=== PATIENT | female | born 1965 | race Two or more races ===

== ENCOUNTER → 2017-01-23 | Outpatient (CLI) | payer BC, MEDICARE ==
[2016-03-30 08:13] VITALS: BP 112/65
[~2017-01-23] MED LIST: ACET-704 PO; AMLO5TAB2 PO; BUDE10.2 IH; Butalb/Acetaminophen/Caffeine PO; CETI10TA22 PO; CLON-276 PO; FLUT1BLS INH; GUAI-40 PO; INSU100V31 SQ; IPRA3AMP NEB; Ipratropium/Albuterol Sulfate NEB; METF10002 PO; MONT10TA9 PO; MORP30TA83 PO; Nystatin SWSW; PRED-220 PO; PRED5TAB PO; PRED5TAB19 PO; TIOT18CA IH
--- NOTE | 2017-01-23 10:29 | RAD ---
Exam performed: Left lower extremity venous Doppler. Clinical Indication: Left knee swelling Date of Service:01/23/17 Comparison : None available Discussion: Multiple longitudinal and transverse high resolution real-time images of the venous system of left lower extremity were obtained with color and Doppler sampling and spectral analysis. The common femoral, superficial femoral, popliteal and proximal calf veins are all patent and demonstrate normal flow and compressibility. Normal respiratory phasicity and augmentation is present. There is flexion anterior and superior to the patella suggesting knee joint effusion. Impression: No convincing evidence of DVT noted. Left knee joint effusion.
== END | disposition home or self-care (01) ==
LOC: US 09:24
PROVIDERS: ATTEND Family Medicine
DX: M25.462 Effusion, left knee (principal); R60.0 Localized edema
CPT/HCPCS: 93971

== ENCOUNTER → 2017-04-16 | Outpatient (CLI) | payer BC, MEDICARE ==
[2016-03-30 08:13] VITALS: BP 112/65
--- NOTE | 2017-04-16 08:42 | RAD ---
Bilateral lower extremity venous Doppler 04/16/2017 Clinical indication: Right lower extremity swelling for 4 days. Comparison: None. Findings: Serial gradient compression of the bilateral lower extremity femoral popliteal system was performed with color Doppler imaging, Valsalva and evaluation for spontaneous flow and normal respiratory variation. The bilateral common femoral, visualized greater saphenous, femoral, insertion of the deep femoral and popliteal veins are widely patent. Bilateral calf survey is unremarkable. There is a moderate simple appearing knee joint effusion most prominent anteromedially. Impression: 1. No acute DVT in the bilateral lower extremities. 2. Moderate right knee joint effusion.
== END | disposition home or self-care (01) ==
LOC: US 07:48
PROVIDERS: ATTEND Nurse Practitioner Family
DX: M25.461 Effusion, right knee (principal); M79.604 Pain in right leg
CPT/HCPCS: 93971

== ENCOUNTER → 2017-11-21 | Outpatient (CLI) | payer BC, MEDICARE ==
[2016-03-30 08:13] VITALS: BP 112/65
[2017-11-21 13:51] LABS: ALBUMIN 3.8 g/dL (3.4-5.0); CALCIUM 8.9 mg/dL (8.5-10.1); CREATININE 0.6 mg/dL (0.6-1.0); GFR 105.4; POTASSIUM 3.7 mmol/L (3.5-5.1); TOTAL BILIRUBIN 0.7 mg/dL (0.2-1.0); TOTAL PROTEIN 7.7 g/dL (6.4-8.2)
[2017-11-21 17:02] LABS: THYROID STIM HORMONE (TSH) 1.086 uIU/mL (0.358-3.740)
[2017-11-21 21:07] LABS: HEMOGLOBIN A1C 12.2 % (4.8-5.6)
== END | disposition home or self-care (01) ==
LOC: LAB 12:33
PROVIDERS: ATTEND Physician Assistant
DX: I10 Essential (primary) hypertension (principal); E11.65 Type 2 diabetes mellitus with hyperglycemia; J44.9 Chronic obstructive pulmonary disease, unspecified; M54.5 Low back pain; J30.2 Other seasonal allergic rhinitis; K21.9 Gastro-esophageal reflux disease without esophagitis; G25.81 Restless legs syndrome; R07.89 Other chest pain
CPT/HCPCS: 36415; 80053; 80061; 82550; 83036; 83880; 84443; 84484; 85379

== ENCOUNTER → 2018-08-18 | Outpatient (CLI) | payer BC ==
[2016-03-30 08:13] VITALS: BP 112/65
[~2018-08-18] MED LIST changes: -AMLO5TAB2 PO; +AMLO5TAB7 PO; +IOHEXOL 240 MG/ML 50ML VIAL. ONE; -IPRA3AMP NEB; +IPRA3AMP29 NEB; -METF10002 PO; +METF10007 PO
[2018-08-18 14:59] LABS: BASO # 0.1 x10^3/uL (0.0-0.2); BASO % 1 % (0-3); EOS # 0.5 x10^3/uL (0.0-0.7); EOS % 6 % (0-3); HEMATOCRIT 47.3 % (36.0-47.0); HEMOGLOBIN 15.6 g/dL (12.0-15.5); LYMPH # 1.7 x10^3/uL (1.0-4.8); LYMPH % 21 % (24-48); MEAN CORPUSCULAR HEMOGLOBIN 29 pg (25-35); MEAN CORPUSCULAR HGB CONC 33 g/dL (31-37); MEAN CORPUSCULAR VOLUME 88 fL (79-100); MONO # 0.4 x10^3/uL (0.0-1.1); MONO % 5 % (0-9); NEUT # 5.4 x10^3uL (1.8-7.7); NEUT % 68 % (31-73); PLATELET COUNT 305 x10^3/uL (140-400); RED BLOOD COUNT 5.37 x10^6/uL (3.50-5.40); RED CELL DISTRIBUTION WIDTH 13.1 % (11.5-14.5)
[2018-08-18 15:05] LABS: ALBUMIN 3.8 g/dL (3.4-5.0); CALCIUM 9.3 mg/dL (8.5-10.1); CREATININE 0.7 mg/dL (0.6-1.0); GFR 87.9; POTASSIUM 3.6 mmol/L (3.5-5.1); TOTAL BILIRUBIN 0.4 mg/dL (0.2-1.0); TOTAL PROTEIN 7.8 g/dL (6.4-8.2)
[2018-08-18] MEDS: IOHEXOL 300 MG/ML 75 ML VIAL. IV ONE (15:46)
--- NOTE | 2018-08-18 16:10 | RAD ---
CT study abdomen and pelvis with contrast Clinical indications: Epigastric and left-sided abdominal pain. TECHNIQUE: After IV infusion of 75 cc of Omnipaque 300, helical CT scanning of the abdomen and pelvis was performed. GI contrast was administered per mouth. PQRS compliance Statement One or more of the following individualized dose reduction techniques were utilized for this study: 1. Automated exposure control 2. Adjustment of the mA and/or kV according to patient size 3. Use of iterative reconstruction technique FINDINGS: The liver and spleen and pancreas are normal. The gallbladder is surgically absent. No extrahepatic biliary ductal dilatation is seen. No adrenal mass is evident. Both kidneys are normal without hydronephrosis or hydroureter. No focal aneurysmal dilatation of the abdominal aorta is seen. No enlarged abdominal or pelvic lymphadenopathy is evident. Urinary bladder wall is smooth. No uterine mass is evident. No dominant ovarian cyst or mass is evident. No obstructive bowel pattern is evident. No free air or free fluid or mesenteric edema is seen. The terminal ileum is unremarkable. The appendix is surgically absent by history. Calcified granuloma of the right lower lobe is seen. No lytic process is evident. Levoscoliosis is seen. IMPRESSION: No acute abnormality of the abdomen or pelvis. Electronically signed by: Eduardo Vega MD (08/18/2018 4:06 PM) [id number]
[2018-08-19 03:08] LABS: HEMOGLOBIN A1C 12.4 % (4.8-5.6)
[2018-08-19 14:35] LABS: THYROID STIM HORMONE (TSH) 1.677 uIU/mL (0.358-3.740)
== END | disposition home or self-care (01) ==
LOC: CT 14:11
PROVIDERS: ATTEND Nurse Practitioner Family
DX: J98.4 Other disorders of lung (principal); M41.84 Other forms of scoliosis, thoracic region
CPT/HCPCS: 36415; 74177; 80053; 80061; 82150; 82306; 82607; 82746; 83036; 83690; 84443; 85025; Q9966; Q9967

== ENCOUNTER → 2019-01-21 | Outpatient (CLI) | payer BC ==
[2016-03-30 08:13] VITALS: BP 112/65
[~2019-01-21] MED LIST changes: +AMLO5TAB10 PO; -AMLO5TAB7 PO; -IOHEXOL 240 MG/ML 50ML VIAL. ONE
--- NOTE | 2019-01-21 13:28 | RAD ---
DATE: 01/21/2019 EXAM: DIGITAL DIAGNOSTIC BILATERAL HISTORY: Mastodynia, right breast discoloration COMPARISON: 12/13/2015 This study was interpreted with the benefit of Computerized Aided Detection (CAD). Breast Density: FATTY The breast parenchyma is primarily fatty replaced. Breast parenchyma level density A. FINDINGS: No new or enlarging breast densities are seen. Benign type calcification is present. No suspicious microcalcifications are seen. IMPRESSION: There is no mammographic evidence of malignancy in either breast. BI-RADS CATEGORY: 2 BENIGN FINDING(S) RECOMMENDED FOLLOW-UP: 12M 12 MONTH FOLLOW-UP PQRS compliance statement: Patient information was entered into a reminder system with a target due date for the next mammogram. Mammography is a sensitive method for finding small breast cancers, but it does not detect them all and is not a substitute for careful clinical examination. A negative mammogram does not negate a clinically suspicious finding and should not result in delay in biopsying a clinically suspicious abnormality. "Our facility is accredited by the [employer] Mammography Program."
== END | disposition home or self-care (01) ==
LOC: MAMMO 12:51
PROVIDERS: ATTEND Nurse Practitioner Family
DX: N64.89 Other specified disorders of breast (principal)
CPT/HCPCS: 77066

== ENCOUNTER 2019-08-30 17:02 | Inpatient (IN) | payer BC, MEDICARE ==
[~2019-08-30] VITALS: Ht 157.5 cm; Wt 71.9 kg
[~2019-08-30 17:02] MED LIST changes: +MONT10TA80 PO; -MONT10TA9 PO
[2019-08-30 17:20] VITALS: BP 126/80
[2019-08-30 18:03] LABS: BASO # 0.1 x10^3/uL (0.0-0.2); BASO % 1 % (0-3); EOS # 0.1 x10^3/uL (0.0-0.7); EOS % 1 % (0-3); HEMATOCRIT 48.5 % (36.0-47.0); HEMOGLOBIN 16.1 g/dL (12.0-15.5); LYMPH # 0.4 x10^3/uL (1.0-4.8); LYMPH % 7 % (24-48); MEAN CORPUSCULAR HEMOGLOBIN 30 pg (25-35); MEAN CORPUSCULAR HGB CONC 33 g/dL (31-37); MEAN CORPUSCULAR VOLUME 90 fL (79-100); MONO # 0.5 x10^3/uL (0.0-1.1); MONO % 7 % (0-9); NEUT # 5.4 x10^3uL (1.8-7.7); NEUT % 84 % (31-73); PLATELET COUNT 220 x10^3/uL (140-400); RED BLOOD COUNT 5.39 x10^6/uL (3.50-5.40); RED CELL DISTRIBUTION WIDTH 13.8 % (11.5-14.5); WHITE BLOOD COUNT 6.4 x10^3/uL (4.0-11.0)
[2019-08-30 18:22] LABS: ALBUMIN 4.1 g/dL (3.4-5.0); ALBUMIN/GLOBULIN RATIO 1.1 (1.0-1.7); CALCIUM 9.2 mg/dL (8.5-10.1); CREATININE 0.7 mg/dL (0.6-1.0); GFR 87.5; POTASSIUM 3.8 mmol/L (3.5-5.1); TOTAL BILIRUBIN 0.5 mg/dL (0.2-1.0); TOTAL PROTEIN 7.7 g/dL (6.4-8.2)
[2019-08-30] MEDS ORDERED: FLUT1BLS IH (18:26)
[2019-08-30] MEDS ORDERED: IPRA3AMP29 NEB (18:26)
[2019-08-30] MEDS ORDERED: ALBU2.5V14 NEB (18:26)
[2019-08-30] MEDS ORDERED: CLON0.1T PO (18:26)
[2019-08-30] MEDS ORDERED: ZOLPIDEM 5 MG TABLET. PO PRN (18:30)
[2019-08-30] MEDS ORDERED: ACETAMINOPHEN 500 MG TABLET PO PRN (18:30)
[2019-08-30] MEDS ORDERED: IOHEXOL 350 MG/ML 100 ML VIAL. IV ONE (18:45)
[2019-08-30] MEDS ORDERED: CONTRAST GIVEN MC PRN (19:00)
[2019-08-30] MEDS ORDERED: DEXTROSE 50% 25 GM / 50ML DISP.SYRIN. IV PRN (19:00)
[2019-08-30] MEDS: IV NORMAL SALINE 1,000ML 1,000 ML IV SCH (19:03)
[2019-08-30] MEDS: IPRATRPIUM/ALBUTEROL 0.5/2.5MG 3 ML NEBU. NEB SCH (20:37)
[2019-08-30] MEDS: HYDROcodone/APAP 7.5/325MG 1 TAB TABLET PO PRN ×2 (21:31→23:59)
--- NOTE | 2019-08-30 21:33 | RAD ---
Exam: CT of chest, abdomen and pelvis with contrast INDICATION: Chest pain TECHNIQUE: Sequential axial images through the chest, abdomen and pelvis obtained following the administration of 72 mL of Isovue-370 IV contrast. Sagittal and coronal reformatted images were reconstructed from the axial data and reviewed. 3-D reformatted images were reconstructed from the axial data and reviewed. Comparisons: Abdomen pelvis CT 08/18/2018 FINDINGS: Visualized portions of the thyroid are unremarkable. No enlarged mediastinal lymph nodes. Heart size is normal. No pericardial effusion. Thoracic aorta has a normal course and caliber. Pulmonary artery is not enlarged. No pulmonary was identified within the main, lobar or segmental pulmonary arteries. Airways are patent. Linear bandlike opacity noted at the left lung base. No consolidation or pneumothorax. Mild bronchial wall thickening is noted. No suspicious lung nodules identified. No pleural effusion or thickening. Liver, spleen, pancreas and adrenals are unremarkable. Gallbladder surgically absent. Kidneys demonstrate symmetric enhancement. No perinephric inflammation or hydronephrosis. No renal or ureteral calculi are identified. Bladder is partially distended and appears thin-walled. Uterus is not enlarged. No abnormal adnexal mass. Large and small bowel are unremarkable. Appendix is not identified. No free intra-abdominal air or fluid. No obstruction. Abdominal aorta has a normal course and caliber. Abdominal vasculature is patent. No enlarged abdominal lymph nodes are identified. No suspicious osseous lesions or acute fractures. IMPRESSION: 1. No pulmonary embolus identified within the main, lobar or segmental pulmonary arteries. 2. Mild bronchial wall thickening and be seen in setting of bronchitis. 3. No acute process identified within the abdomen or pelvis. Exposure: One or more of the following in the visualized dose reduction techniques were utilized for this examination: 1. Automated exposure control 2. Adjustment of the MA and/or KV according to patient size 3. Use of iterative of reconstructive technique Electronically signed by: Juan Carlos Bustillo MD (08/30/2019 9:30 PM) [facility]
[2019-08-30 23:17] VITALS: BP 112/70
[2019-08-31] MEDS: IV NORMAL SALINE 1,000ML 1,000 ML IV SCH ×4 (02:07→21:28)
[2019-08-31 05:50] VITALS: BP 120/78
[2019-08-31 05:59] LABS: INFLUENZA A PATIENT POSITIVE (NEGATIVE); INFLUENZA B PATIENT NEGATIVE (NEGATIVE)
[2019-08-31 06:44] LABS: BASO % 1 % (0-3); EOS # 0.1 x10^3/uL (0.0-0.7); EOS % 1 % (0-3); HEMATOCRIT 46.4 % (36.0-47.0); HEMOGLOBIN 14.5 g/dL (12.0-15.5); LYMPH # 0.6 x10^3/uL (1.0-4.8); LYMPH % 13 % (24-48); MEAN CORPUSCULAR HEMOGLOBIN 30 pg (25-35); MEAN CORPUSCULAR HGB CONC 31 g/dL (31-37); MONO # 0.6 x10^3/uL (0.0-1.1); MONO % 12 % (0-9); NEUT # 3.4 x10^3uL (1.8-7.7); NEUT % 73 % (31-73); PLATELET COUNT 216 x10^3/uL (140-400); RED BLOOD COUNT 4.84 x10^6/uL (3.50-5.40); RED CELL DISTRIBUTION WIDTH 14.3 % (11.5-14.5); WHITE BLOOD COUNT 4.7 x10^3/uL (4.0-11.0)
[2019-08-31 06:52] LABS: ALBUMIN 3.3 g/dL (3.4-5.0); ALBUMIN/GLOBULIN RATIO 0.9 (1.0-1.7); CALCIUM 8.6 mg/dL (8.5-10.1); CREATININE 0.6 mg/dL (0.6-1.0); GFR 104.6; POTASSIUM 3.6 mmol/L (3.5-5.1); TOTAL BILIRUBIN 0.4 mg/dL (0.2-1.0); TOTAL PROTEIN 6.9 g/dL (6.4-8.2)
[2019-08-31 07:23] LABS: MEAN CORPUSCULAR VOLUME 96 fL (79-100)
[2019-08-31 07:48] LABS: HYPOCHROMIA PRESENT; PLT ESTIMATE ADEQUATE (ADEQUATE)
[2019-08-31] MEDS ORDERED: guaiFENesin/PS-EPHED 600/60MG 1 TAB TAB.ER.12H PO PRN (08:00)
[2019-08-31] MEDS ORDERED: IPRATRPIUM/ALBUTEROL 0.5/2.5MG 3 ML NEBU. NEB PRN (08:00)
[2019-08-31] MEDS: IPRATRPIUM/ALBUTEROL 0.5/2.5MG 3 ML NEBU. NEB SCH ×4 (08:29→21:10)
[2019-08-31] MEDS: ONDANSETRON ODT 4 MG TAB.RAPDIS PO PRN ×2 (08:30→21:16)
[2019-08-31] MEDS: OSELTAMIVIR 75 MG CAPSULE PO SCH ×2 (08:30→21:16)
[2019-08-31] MEDS: CETIRIZINE HCL 10 MG TABLET PO SCH (08:30)
[2019-08-31] MEDS: INSULIN LISPRO 300 UNITS/3 ML VIAL. SQ SCH ×3 (08:33→17:23)
[2019-08-31] MEDS: amLODIPine BESYLATE 5 MG TABLET PO SCH ×2 (08:35→21:17)
[2019-08-31] MEDS ORDERED: AZITHROMYCIN 250 MG TABLET. PO SCH (09:00)
[2019-08-31] MEDS ORDERED: FLU VAX QS 2019-20 (36MOS+)/PF 0.5 ML SYRINGE. VAX IM ONE (09:00)
[2019-08-31] MEDS: HYDROcodone/APAP 7.5/325MG 1 TAB TABLET PO PRN ×2 (09:23→17:17)
[2019-08-31] MEDS: AZITHROMYCIN 250 MG in IV NORMAL SALINE 250ML 250 ML IV SCH (10:26)
[2019-08-31 10:59] VITALS: BP 96/57
[2019-08-31 14:01] LABS: BILIRUBIN,URINE NEG (NEG); CLARITY,URINE CLEAR; COLOR,URINE YELLOW; GLUCOSE,URINE 500 mg/dL (NEG); NITRITE,URINE NEG (NEG); RBC,URINE RARE /HPF (0-2); UROBILINOGEN,URINE 0.2 mg/dL (0.2 mg/dL); WBC,URINE RARE /HPF (0-4)
[2019-08-31 14:02] LABS: BACTERIA,URINE FEW /HPF (0-FEW); SQUAMOUS EPITHELIAL CELL,UR OCC /LPF
[2019-08-31 15:47] VITALS: BP 109/71
[2019-08-31] MEDS ORDERED: HYDROcodone/CHLORPHEN POLIS 5 ML SUS.ER.12H PO PRN (17:30)
[2019-08-31] MEDS ORDERED: INSULIN GLARGINE SYRINGE. SQ SCH (21:00)
[2019-08-31] MEDS: MONTELUKAST 10 MG TABLET. PO SCH (21:16)
[2019-08-31] MEDS: methylPREDNISolone SOD SUCC PF 40 MG/ML VIAL. IV SCH (21:17)
[2019-08-31 21:22] VITALS: BP 113/70
--- NOTE | 2019-08-31 22:46 | PN ---
DATE: SUBJECTIVE: A 54-year-old female admitted with influenza, pneumonia and the like. The patient is resting fairly comfortably, although extremely ill, still having difficulty with her breathing, acute respiratory failure is noted. The patient's hemoglobin has dropped probably just from rehydration. Blood pressure did drop down to 95/57 (NC), pulse 103, temperature 98.1, oxygen saturation anywhere from 90-97%. The patient is still receiving IV fluids and we will continue on IV antibiotic therapy as well as aggressive pulmonary toilet as well. The patient otherwise seems to be resting fairly comfortably, although fairly miserable with her overall condition, is noted with positive influenza as well. IMPRESSION: Acute respiratory failure, influenza A, pneumonia of unspecified etiology, community acquired, hypercholesterolemia, type 2 diabetes, poorly controlled. PLAN: Continue to monitor the patient, IV fluids. Adjust medications accordingly. ELIEZER PECK MD DR: REUBEN/tevin JOB#: [id number] / [id number]
[2019-08-31 23:30] VITALS: BP 112/67
[2019-09-01] MEDS: HYDROcodone/APAP 7.5/325MG 1 TAB TABLET PO PRN (00:25)
[2019-09-01 01:07] LABS: HEMOGLOBIN A1C 13.7 % (4.8-5.6)
[2019-09-01] MEDS: IV NORMAL SALINE 1,000ML 1,000 ML IV SCH ×3 (04:10→16:52)
[2019-09-01] MEDS: IPRATRPIUM/ALBUTEROL 0.5/2.5MG 3 ML NEBU. NEB SCH ×4 (05:05→21:06)
[2019-09-01 05:23] VITALS: BP 101/66
[2019-09-01] MEDS: OSELTAMIVIR 75 MG CAPSULE PO SCH ×2 (08:01→20:27)
[2019-09-01] MEDS: CETIRIZINE HCL 10 MG TABLET PO SCH (08:01)
[2019-09-01] MEDS: methylPREDNISolone SOD SUCC PF 40 MG/ML VIAL. IV SCH (08:02)
[2019-09-01] MEDS: INSULIN LISPRO 300 UNITS/3 ML VIAL. SQ SCH ×3 (08:13→16:57)
[2019-09-01] MEDS: amLODIPine BESYLATE 5 MG TABLET PO SCH ×2 (09:00→20:27)
--- NOTE | 2019-09-01 09:55 | PN ---
DATE: 09/01/2019 SUBJECTIVE: A 54-year-old female in with flu and pneumonia, elevated blood sugar, weight loss. The patient is resting fairly comfortably this morning, feels a little bit better, still spiking temperature up to 100.1. OBJECTIVE: VITAL SIGNS: Blood pressure 101/66, respiration 18, pulse 74. Still on 2 liters at 92%. GENERAL: The patient is alert and oriented. LUNGS: Diminished, but clear other than they have been. CARDIOVASCULAR: Regular sinus rhythm. ABDOMEN: Soft, nontender, no rebounding or guarding. EXTREMITIES: No clubbing, cyanosis, nor edema. The patient is making good progress overall. We will continue to monitor her, continue on her anti-flu medication as well as antibiotics, breathing treatments and monitoring her sugars. She is on a sliding scale at the present time. Also, increased her Lantus to 35 units to see if that will help bring down that sugar, also will start to taper down on her Solu-Medrol that was used for her breathing difficulties. She is ambulatory. Will begin to walk around in the halls more, keep her legs moving at least 2-3 times a day there. In any case, the patient is making much better progress overall. IMPRESSION: Acute respiratory failure, influenza A pneumonia of unspecified etiology, community acquired, hypercholesterolemia, type 2 diabetes, poorly controlled, obesity, acute weight loss. PLAN: Continue to monitor the patient accordingly and make further evaluation per those results. ELIEZER PECK MD DR: REUBEN/tevin JOB#: [id number] / [id number]
[2019-09-01] MEDS: ACETAMINOPHEN/CODEINE 300/30MG TABLET PO PRN (10:21)
[2019-09-01] MEDS: AZITHROMYCIN 250 MG in IV NORMAL SALINE 250ML 250 ML IV SCH (10:22)
[2019-09-01 11:14] VITALS: BP 125/74
[2019-09-01] MEDS ORDERED: INSULIN LISPRO 300 UNITS/3 ML VIAL. SQ ONE (12:00)
[2019-09-01 15:28] VITALS: BP 106/63
[2019-09-01 19:19] VITALS: BP 112/69
[2019-09-01] MEDS ORDERED: INSULIN LISPRO 300 UNITS/3 ML VIAL. SQ SCH (20:00)
[2019-09-01] MEDS: MONTELUKAST 10 MG TABLET. PO SCH (20:27)
[2019-09-01] MEDS ORDERED: INSULIN GLARGINE SYRINGE. SQ SCH (21:00)
[2019-09-01 22:17] VITALS: BP 129/73
[2019-09-02] MEDS: IV NORMAL SALINE 1,000ML 1,000 ML IV SCH ×2 (00:59→08:15)
[2019-09-02] MEDS: ACETAMINOPHEN/CODEINE 300/30MG TABLET PO PRN (01:00)
[2019-09-02 05:48] VITALS: BP 110/70
[2019-09-02] MEDS: IPRATRPIUM/ALBUTEROL 0.5/2.5MG 3 ML NEBU. NEB SCH (05:49)
[2019-09-02] MEDS: OSELTAMIVIR 75 MG CAPSULE PO SCH (08:14)
[2019-09-02 08:15] VITALS: BP 110/70
[2019-09-02] MEDS: CETIRIZINE HCL 10 MG TABLET PO SCH (08:15)
[2019-09-02] MEDS: amLODIPine BESYLATE 5 MG TABLET PO SCH (08:15)
[2019-09-02] MEDS: INSULIN LISPRO 300 UNITS/3 ML VIAL. SQ SCH (08:29)
[2019-09-02] MEDS ORDERED: predniSONE 20 MG TABLET PO SCH ×2 (09:00→09:30)
[2019-09-02] MEDS ORDERED: PRED20TA PO (10:08)
[2019-09-02] MEDS ORDERED: OSEL75CA PO (10:08)
[2019-09-02] MEDS ORDERED: INSU100V8 SQ (10:08)
[2019-09-02] MEDS ORDERED: AZIT500T PO (10:08)
[2019-09-02] MEDS ORDERED: INSULIN GLARGINE SYRINGE. SQ SCH (21:00)
--- NOTE | 2019-09-07 19:56 | DS ---
DATE OF DISCHARGE: 09/02/2019 HOSPITAL COURSE: A 54-year-old female came in extremely short of breath, markedly dyspneic. The patient was found to have influenza A in her workup. The patient also had been losing weight for the last several months, approximately 30-40 pounds, but she had not been controlling her blood sugar. She was mobile. She was extremely dehydrated. I had to start her on insulin to get her sugars down as well as to break the vicious cycle of her weight loss. The patient had some respiratory distress. The patient had a CT scan of her abdomen and pelvis because of abdominal pain. No pulmonary emboli. She had bronchial wall thickening consistent with bronchitis. The abdomen and pelvis was basically unremarkable. In any case, we were able to get her blood sugars down. She was mobile. Blood pressure 110/53, respiratory rate 20, pulse is 53, and afebrile. Otherwise, the patient made excellent progress and was discharged home. Continue on respiratory therapy and the antibiotics and anti-flu. IMPRESSION: Acute respiratory failure; influenza A pneumonia of unspecified etiology, community acquired, hypercholesterolemia; morbid obesity; type 2 diabetes, poorly controlled; acute weight loss; and moderate protein malnutrition. PLAN: The patient will be followed up as an outpatient on her multiple medical issues. Recommended typical getting her feet examined as well as her eyes examined by the emt basic. ELIEZER PECK MD DR: REUBEN/tevin JOB#: [id number] / [id number]
== END 2019-09-02 10:33 | disposition home or self-care (01) | DRG 193 ==
LOC: 1 SOUTH 17:02
PROVIDERS: ADMIT Family Medicine; ATTEND Family Medicine
DX: J10.00 Influenza due to other identified influenza virus with unspecified type of pneumonia (principal); J96.00 Acute respiratory failure, unspecified whether with hypoxia or hypercapnia; E44.0 Moderate protein-calorie malnutrition; E11.65 Type 2 diabetes mellitus with hyperglycemia; E66.01 Morbid (severe) obesity due to excess calories; E78.00 Pure hypercholesterolemia, unspecified; E86.0 Dehydration; J40 Bronchitis, not specified as acute or chronic; Z68.29 Body mass index [BMI] 29.0-29.9, adult; Z88.8 Allergy status to other drugs, medicaments and biological substances
CPT/HCPCS: 36415; 71275; 74177; 80053; 80061; 81001; 82947; 83036; 83605; 84145; 85025; 85379; 87086; 87804; 90471; 90686; 94640; 94760; J0456; J0696; J1815; J2920; J7050; J7512; J7620; Q0162; Q9967; J7030

== ENCOUNTER 2019-12-05 16:19 | Inpatient (IN) | payer BC, MEDICARE ==
[~2019-12-05] VITALS: Ht 157.5 cm; Wt 66.3 kg
[~2019-12-05 16:19] MED LIST changes: +ALBU2.5V14 NEB; +AZIT500T PO; -CETI10TA22 PO; +CETI10TA24 PO; +CLON0.1T PO; +FLUT1BLS IH; +INSU100V8 SQ; +OSEL75CA PO; +PRED20TA PO
--- NOTE | 2019-12-05 16:56 | PHYS DOC ---
Past History Past Medical History: Asthma, COPD, Diabetes Past Surgical History: Appendectomy, Other Smoking: Non-smoker Alcohol Use: Rarely Drug Use: None Adult General Chief Complaint Chief Complaint: SHORTNESS OF BREATH HPI HPI Patient is a 54-year-old female who presents with complaint of shortness of madyson ath. Patient was admitted about 6 to 8 weeks ago for pneumonia and states that she saw Dr. Marino about a week ago and was diagnosed with RSV. Patient states that her shortness of breath is worsening. Patient is not aware of any fever. She does indicate that shortness of breath is worsened with exertion. Patient was sent down to ER for evaluation. [] Review of Systems Review of Systems Constitutional: Denies fever or chills [] Respiratory: Complains of cough and shortness of breath [] Cardiovascular: No additional information not addressed in HPI [] GI: Denies abdominal pain, nausea, vomiting or diarrhea [] Integument: Denies rash or skin lesions [] Neurologic: Denies headache, focal weakness or sensory changes [] All other systems were reviewed and found to be within normal limits, except as documented in this note. Allergies Allergies Allergies Coded Allergies Type Severity Reaction Last Updated Verified lisinopril Allergy Intermediate Swelling 07/25/14 Yes Physical Exam Physical Exam Constitutional: Well developed, well nourished, no acute distress, non-toxic appearance. [] HENT: Normocephalic, atraumatic, bilateral external ears normal, oropharynx moist, no oral exudates, nose normal. [] Eyes: PERRLA, EOMI, conjunctiva normal, no discharge. [] Neck: Normal range of motion, no tenderness, supple, no stridor. [] Cardiovascular:Heart rate regular rhythm, no murmur [] Lungs & Thorax: Bilateral breath sounds clear to auscultation [] Abdomen: Bowel sounds normal, soft, no tenderness. [] Skin: Warm, dry, no erythema, no rash. [] Extremities: No tenderness, no cyanosis, no clubbing, ROM intact, no edema. [] Neurologic: Alert and oriented X 3, no focal deficits noted. [] Current Patient Data Vital Signs Vital Signs Date Time Temp Pulse Resp B/P (MAP) Pulse Ox O2 Delivery O2 Flow Rate FiO2 12/05/19 16:38 97.6 77 20 94 EKG EKG [] Radiology/Procedures Radiology/Procedures [] Impressions: PROCEDURE: PORTABLE CHEST 1V Examination: PORTABLE CHEST 1V History: Shortness of breath Comparison/Correlation: 03/26/2016 2 view chest x-ray exam Findings: Portable upright frontal view of the chest was obtained. Heart size and pulmonary vasculature are normal. No infiltrate or pleural effusion. No pneumothorax. Minimal discoid atelectasis at the left lower lung field is present. Bony structures are unremarkable. Impression: No active disease. Electronically signed by: Alireza Mann MD (12/05/2019 5:00 PM) [id number] Course & Med Decision Making Course & Med Decision Making Pertinent Labs and Imaging studies reviewed. (See chart for details) [] Dragon Disclaimer Dragon Disclaimer This electronic medical record was generated, in whole or in part, using a voice recognition dictation system. Departure Departure: Impression: Primary Impression: Chest pain Additional Impression: RSV (respiratory syncytial virus infection) Disposition: ADMITTED INPATIENT Admitting Physician: Eliezer Peck Condition: IMPROVED Referrals: ELIEZER PECK MD (PCP) Problem Qualifiers Primary Impression: Chest pain Chest pain type: unspecified Qualified Codes: R07.9 - Chest pain, unspecified KAY FRANKS Jr. DO Dec 05, 2019 16:56
--- NOTE | 2019-12-05 17:03 | RAD ---
Examination: PORTABLE CHEST 1V History: Shortness of breath Comparison/Correlation: 03/26/2016 2 view chest x-ray exam Findings: Portable upright frontal view of the chest was obtained. Heart size and pulmonary vasculature are normal. No infiltrate or pleural effusion. No pneumothorax. Minimal discoid atelectasis at the left lower lung field is present. Bony structures are unremarkable. Impression: No active disease. Electronically signed by: Alireza Mann MD (12/05/2019 5:00 PM) [id number]
[2019-12-05 17:46] LABS: BASO # 0.1 x10^3/uL (0.0-0.2); BASO % 1 % (0-3); EOS # 0.2 x10^3/uL (0.0-0.7); EOS % 2 % (0-3); HEMATOCRIT 46.3 % (36.0-47.0); HEMOGLOBIN 15.6 g/dL (12.0-15.5); LYMPH # 1.1 x10^3/uL (1.0-4.8); LYMPH % 12 % (24-48); MEAN CORPUSCULAR HEMOGLOBIN 30 pg (25-35); MEAN CORPUSCULAR HGB CONC 34 g/dL (31-37); MEAN CORPUSCULAR VOLUME 90 fL (79-100); MONO # 0.6 x10^3/uL (0.0-1.1); MONO % 6 % (0-9); NEUT # 7.2 x10^3uL (1.8-7.7); NEUT % 79 % (31-73); PLATELET COUNT 302 x10^3/uL (140-400); RED BLOOD COUNT 5.16 x10^6/uL (3.50-5.40); RED CELL DISTRIBUTION WIDTH 12.8 % (11.5-14.5); WHITE BLOOD COUNT 9.1 x10^3/uL (4.0-11.0)
[2019-12-05 17:55] LABS: CALCIUM 9.4 mg/dL (8.5-10.1); CREATININE 0.6 mg/dL (0.6-1.0); GFR 104.6; POTASSIUM 3.8 mmol/L (3.5-5.1)
[2019-12-05 18:04] LABS: INFLUENZA A PATIENT NEGATIVE (NEGATIVE); INFLUENZA B PATIENT NEGATIVE (NEGATIVE)
[2019-12-05 18:09] LABS: ALBUMIN 3.7 g/dL (3.4-5.0); TOTAL BILIRUBIN 0.3 mg/dL (0.2-1.0); TOTAL PROTEIN 7.3 g/dL (6.4-8.2)
[2019-12-05] MEDS ORDERED: MORPHINE SULFATE 4 MG/ML DISP.SYRIN. IV ONE (18:15)
[2019-12-05] MEDS ORDERED: MORPHINE SULFATE 4 MG/ML DISP.SYRIN. IVP PRN (18:30)
[2019-12-05] MEDS ORDERED: ONDANSETRON PF 4 MG/2 ML VIAL. IVP PRN (18:30)
--- NOTE | 2019-12-05 19:28 | EKG ---
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
[2019-12-05 19:40] VITALS: BP 140/89
[2019-12-05] MEDS ORDERED: NON FORMULARY ITEM (Fluticasone/Vilanterol (Breo Ellipta 200-25 Mcg INH) 1 PUFF) IH SCH (20:15)
[2019-12-05] MEDS ORDERED: guaiFENesin/PS-EPHED 600/60MG 1 TAB TAB.ER.12H PO PRN (20:15)
[2019-12-05] MEDS ORDERED: IPRATRPIUM/ALBUTEROL 0.5/2.5MG 3 ML NEBU. NEB PRN (20:15)
[2019-12-05] MEDS ORDERED: DEXTROSE 50% 25 GM / 50ML DISP.SYRIN. IV PRN (20:15)
[2019-12-05] MEDS ORDERED: BUTALB/APAP/CAFEIN 50/325/40MG TABLET. PO PRN (20:30)
[2019-12-05] MEDS: IPRATRPIUM/ALBUTEROL 0.5/2.5MG 3 ML NEBU. NEB SCH (20:30)
[2019-12-05] MEDS: cloNIDine HCL 0.1 MG TABLET PO SCH (21:00)
[2019-12-05] MEDS: amLODIPine BESYLATE 5 MG TABLET PO SCH (21:25)
[2019-12-05] MEDS: MONTELUKAST 10 MG TABLET. PO SCH (21:25)
[2019-12-05] MEDS: INSULIN GLARGINE SYRINGE. SQ SCH (21:26)
[2019-12-05 22:40] VITALS: BP 130/71
[2019-12-05] MEDS: ACETAMINOPHEN/CODEINE 300/30MG TABLET PO PRN (22:55)
[2019-12-06] MEDS ORDERED: NON FORMULARY ITEM (Albuterol Sulfate (Albuterol Sulfate Conc Neb Soln) 1 VIAL) NEB SCH
[2019-12-06] MEDS: ACETAMINOPHEN/CODEINE 300/30MG TABLET PO PRN ×2 (05:26→20:46)
[2019-12-06] MEDS: IPRATRPIUM/ALBUTEROL 0.5/2.5MG 3 ML NEBU. NEB SCH ×2 (05:31→11:03)
[2019-12-06 06:10] VITALS: BP 115/71
[2019-12-06] MEDS: ALBUTEROL SULFATE 2.5 MG/3 ML NEBU. NEB SCH ×4 (06:38→20:33)
[2019-12-06] MEDS: CETIRIZINE HCL 10 MG TABLET PO SCH (08:47)
[2019-12-06] MEDS: metFORMIN 500 MG TABLET PO SCH ×2 (08:47→17:14)
[2019-12-06] MEDS: amLODIPine BESYLATE 5 MG TABLET PO SCH ×2 (08:48→20:45)
[2019-12-06] MEDS: INSULIN LISPRO 300 UNITS/3 ML VIAL. SQ SCH ×5 (08:54→20:51)
[2019-12-06] MEDS ORDERED: NON FORMULARY ITEM (Budesonide/Formoterol Fumarate (Symbicort 160-4.5 Mcg Inhaler) 10.2 GM IH SCH (09:00)
[2019-12-06] MEDS ORDERED: predniSONE 10 MG TABLET PO SCH (09:00)
--- NOTE | 2019-12-06 09:15 | PN ---
DATE: SUBJECTIVE: A 54-year-old individual with increased shortness of breath. The patient was over here seen at the clinic with increased shortness of breath, has a long history of asthma and the like. The patient had been having trouble breathing last several days. She was admitted to the hospital and placed on IV Solu-Medrol, aggressive pulmonary toilet. She had failed outpatient therapy and will be switched over to her IV methylprednisolone instead of just some oral prednisone that she had been using as an outpatient, as well as aggressive DuoNeb treatments at least 4 times a day. This morning, she is feeling a little better, but still very weak. OBJECTIVE: VITAL SIGNS: Blood pressure 115/70, respiratory rate 20, pulse 80, afebrile. LUNGS: Using some accessory muscles. The patient has poor movement of air throughout all her lungs. CARDIOVASCULAR: Regular sinus rhythm. ABDOMEN: Soft, nontender. EXTREMITIES: No clubbing, cyanosis, nor edema. NEUROLOGIC: The patient is alert and oriented x 3. LABORATORY DATA: Basically noncontributory outside of her sugars being elevated to 286. We will put her on a sliding scale as obviously when she hits with the Solu-Medrol that is going to be escalated, so we will need to pre-up that there. IMPRESSION: Acute exacerbation of chronic obstructive pulmonary disease with possible bronchitis, type 2 diabetes, exacerbated with prednisone. PLAN: Continue to monitor the patient accordingly, make further evaluation on her as indicated. ELIEZER PECK MD DR: REUBEN/tevin JOB#: [id number] / [id number]
[2019-12-06] MEDS: methylPREDNISolone SOD SUCC PF 40 MG/ML VIAL. IV SCH ×3 (11:00→22:32)
[2019-12-06] MEDS: BUDESONIDE 0.5 MG/2 ML NEBU NEB SCH ×2 (11:03→20:33)
[2019-12-06 11:33] VITALS: BP 97/58
[2019-12-06 15:36] VITALS: BP 119/69
[2019-12-06 20:00] VITALS: BP 123/65
[2019-12-06] MEDS: cloNIDine HCL 0.1 MG TABLET PO SCH (20:45)
[2019-12-06] MEDS: MONTELUKAST 10 MG TABLET. PO SCH (20:45)
[2019-12-06] MEDS: INSULIN GLARGINE SYRINGE. SQ SCH (22:41)
[2019-12-06 22:45] VITALS: BP 154/78
[2019-12-07] MEDS: ALBUTEROL SULFATE 2.5 MG/3 ML NEBU. NEB SCH ×2 (05:22→11:34)
[2019-12-07] MEDS: methylPREDNISolone SOD SUCC PF 40 MG/ML VIAL. IV SCH (05:57)
[2019-12-07] MEDS: ACETAMINOPHEN/CODEINE 300/30MG TABLET PO PRN (06:06)
[2019-12-07 06:13] VITALS: BP 133/63
[2019-12-07 08:06] VITALS: BP 133/63
[2019-12-07] MEDS: amLODIPine BESYLATE 5 MG TABLET PO SCH (08:06)
[2019-12-07] MEDS: CETIRIZINE HCL 10 MG TABLET PO SCH (08:06)
[2019-12-07] MEDS: metFORMIN 500 MG TABLET PO SCH (08:06)
[2019-12-07] MEDS: INSULIN LISPRO 300 UNITS/3 ML VIAL. SQ SCH (08:12)
[2019-12-07] MEDS ORDERED: PRED5TAB PO (10:46)
[2019-12-07] MEDS ORDERED: AZIT500T2 PO (10:46)
--- NOTE | 2019-12-07 11:27 | DS ---
DATE OF DISCHARGE: HOSPITAL COURSE: A 54-year-old female came in with a problem with shortness of breath. She was initially seen in the office. She had failed outpatient therapy despite the use of prednisone and breathing treatments there, she needed to be switched over to IV prednisolone and made good progress with it. Her heart rate initially was up in the one teens. She made good progress. She remained afebrile. Chest x-ray itself was basically unremarkable. No active disease there. Her labs demonstrated good white count except for low lymphocytes, probably indicating some type of an infectious process, viral serology influenza negative. Blood sugars were elevated because she was on the methylprednisolone. We will go ahead and obviously taper down off that. Continue to monitor blood sugars carefully at home and recommended close monitoring there until we can get this sugar under control. Her breathing markedly improved. She was not moving much air, had failed outpatient therapy as an outpatient, so when she came in, she made good progress. She was discharged to acute exacerbation of asthma, history of emphysema, acute on top of chronic respiratory distress, hyperglycemia, type 2 diabetes, exacerbated with the use of steroids. She will be on a heart healthy diabetic diet, decreased activity, breathing treatments, stay away from pollution and isolate herself from other people in the usual fashion around here. In any case, discharged home in good condition. ELIEZER PECK MD DR: REUBEN/tevin JOB#: [id number] / [id number]
[2019-12-07] MEDS: BUDESONIDE 0.5 MG/2 ML NEBU NEB SCH (11:34)
== END 2019-12-07 11:48 | disposition home or self-care (01) | DRG 191 ==
LOC: ER 16:19 → 1 SOUTH 18:15 → OBSVTOIN 12-06 09:22
PROVIDERS: ADMIT Family Medicine; ATTEND Family Medicine
DX: J43.9 Emphysema, unspecified (principal); J45.901 Unspecified asthma with (acute) exacerbation; B97.4 Respiratory syncytial virus as the cause of diseases classified elsewhere; E11.65 Type 2 diabetes mellitus with hyperglycemia; T38.0X5A Adverse effect of glucocorticoids and synthetic analogues, initial encounter; Z90.49 Acquired absence of other specified parts of digestive tract; Z88.8 Allergy status to other drugs, medicaments and biological substances; Y92.89 Other specified places as the place of occurrence of the external cause
CPT/HCPCS: 36415; 71045; 80053; 82947; 83880; 84484; 85025; 87804; 93005; 94640; G0378; G0379; J1815; J2920; J7613; J7626

== ENCOUNTER → 2020-01-31 | Outpatient (CLI) | payer BC, MEDICARE ==
[~2020-01-31] MED LIST changes: +AZIT500T2 PO; +IOHEXOL 240 MG/ML 50ML VIAL. ONE; +IOHEXOL 240 MG/ML 50ML VIAL. PO ONE; +IOHEXOL 300 MG/ML 75 ML VIAL. IV ONE
[2020-01-31 11:32] LABS: CREATININE 0.5 mg/dL (0.6-1.0); GFR 129.1
--- NOTE | 2020-01-31 13:10 | RAD ---
Exam: CT abdomen/pelvis without intravenous contrast Indication: Diabetic, weight loss 30 pounds in 6 months. No IV access. Comparison: CT angiogram chest abdomen and pelvis 08/30/2019 Technique: Helical CT imaging performed of the abdomen and pelvis without contrast. Sagittal and coronal reformats were obtained. One or more of the following individualized dose reduction techniques were utilized for this examination: 1. Automated exposure control 2. Adjustment of the mA and/or kV according to patient size 3. Use of iterative reconstruction technique. Findings: Lower chest: A calcified granuloma in the posterior right lower lobe is unchanged. Mild atelectasis in the lingula. Heart size is normal. Liver: Liver measures 18.9 cm in length. Normal hepatic attenuation. Gallbladder/Biliary Tree: Surgical changes of cholecystectomy. No biliary duct dilatation. Pancreas: Normal. Spleen: Normal. Adrenal Glands: Normal. Kidneys/Ureters/Bladder: Kidneys are normal in size. No hydronephrosis or nephrolithiasis. Ureters are nondilated. Urinary bladder is unremarkable. Reproductive Organs: The uterus is anteverted. There is a 2.6 cm slightly hypodense mass in the lower uterine segment. This may have been present on prior exam but is more conspicuous today. No adnexal mass. Stomach, small bowel, and colon: Stomach, small bowel, and colon are unremarkable. Vasculature: No abdominal aortic aneurysm. Lymph Nodes: No lymphadenopathy. Peritoneum and retroperitoneum: No free fluid or free air. Bones: There is levoscoliosis of the lumbar spine and mild to moderate degenerative disc disease at L1-L2 through L3-L4. No acute fracture or suspicious osseous lesion. Impression: 1. No acute intra-abdominal/pelvic abnormality. 2. 2.6 cm hypodense mass in the lower uterine segment, possibly a fibroid. Correlation can be made with pelvic ultrasound to further evaluate. Electronically signed by: Patricia Amos MD (01/31/2020 1:07 PM) [id number]
== END | disposition home or self-care (01) ==
LOC: CT 10:51
PROVIDERS: ATTEND Family Medicine
DX: J80 Acute respiratory distress syndrome (principal); R63.4 Abnormal weight loss; J84.10 Pulmonary fibrosis, unspecified; J98.11 Atelectasis; M51.36 Other intervertebral disc degeneration, lumbar region; E11.9 Type 2 diabetes mellitus without complications; J44.9 Chronic obstructive pulmonary disease, unspecified; Z90.49 Acquired absence of other specified parts of digestive tract
CPT/HCPCS: 36415; 74176; 82565; Q9966